=== PATIENT | female | born 1930 | race Caucasian/White ===

== ENCOUNTER 2017-11-16 10:38 | Emergency (ER) | payer MEDICARE, BC ==
[~2017-11-16] VITALS: Ht 154.9 cm; Wt 62.1 kg
[~2017-11-16 10:38] MED LIST: ACETAMINOPHEN-1 EAC1 PO; AUGMENTIN 875-1 EACH PO; CIPROFLOXACIN500 M1 PO; NORVASC5 MG PO; PHENAZOPYRIDIN200 M2 PO
[2017-11-16] MEDS ORDERED: COUMADIN 1MG TAB1 M1 PO (10:55)
[2017-11-16] MEDS ORDERED: NITROFURANTOIN100 MG PO (10:56)
[2017-11-16 11:07] LABS: URINE BILIRUBIN NEGATIVE (Negative); URINE BLOOD 1+ (Negative); URINE CLARITY CLOUDY; URINE GLUCOSE-RANDOM NEGATIVE (Negative); URINE KETONES NEGATIVE (Negative); URINE LEUKOCYTES-REFLEX 2+ (Negative); URINE NITRITE-REFLEX NEGATIVE (Negative); URINE PROTEIN 3+ (Negative); URINE UROBILINOGEN 0.2 E.U./dl (0.2-1.0)
[2017-11-16 11:08] LABS: URINE COLOR GREEN
[2017-11-16 11:11] LABS: SQUAMOUS 0-3 Few /LPF (0-3); URINE WBC-REFLEX >25 Many /HPF (0-5)
[2017-11-16 11:12] LABS: BACTERIA-REFLEX >30 Many /HPF (None Seen); CASTS None Seen /LPF (None Seen); CRYSTALS None Seen /LPF (None Seen); MUCUS None Seen strn/LPF (None Seen); URINE RBC 3-10 Few /HPF (0-2)
[2017-11-16] MEDS ORDERED: AUGMENTIN 875-1 EACH PO (11:13)
[2017-11-16] MEDS ORDERED: PHENAZOPYRIDIN200 M2 PO (11:14)
[2017-11-16 11:26] VITALS: BP 134/68
== END 2017-11-16 11:27 | disposition home or self-care (01) ==
LOC: M.ERS 10:38
PROVIDERS: Family Medicine
DX: N39.0 Urinary tract infection, site not specified (principal); I10 Essential (primary) hypertension; Z87.440 Personal history of urinary (tract) infections; Z90.710 Acquired absence of both cervix and uterus; Z90.89 Acquired absence of other organs; Z86.711 Personal history of pulmonary embolism; Z88.2 Allergy status to sulfonamides

== ENCOUNTER 2018-08-16 16:56 | Inpatient (IN) | payer MEDICARE, BC ==
[~2018-08-16] VITALS: Ht 154.9 cm; Wt 56.7 kg
[~2018-08-16 16:56] MED LIST changes: +COUMADIN 1MG TAB1 M1 PO; +NITROFURANTOIN100 MG PO
[2018-08-16 17:01] VITALS: BP 166/90
[2018-08-16] MEDS ORDERED: COUMADIN 5 MG TA5 M1 PO (17:03)
[2018-08-16 17:44] LABS: ABSOLUTE BASOPHILS 0.1 thou/uL (0.0-0.2); ABSOLUTE EOSINOPHILS 0.2 thou/uL (0.0-0.7); ABSOLUTE LYMPHOCYTES 2.1 thou/uL (0.8-5.3); ABSOLUTE MONOCYTES 0.7 thou/uL (0.0-1.2); ABSOLUTE NEUTROPHILS 3.9 thou/uL (1.6-8.1); BASOPHILS 0.8 %; EOSINOPHILS 2.9 %; HEMATOCRIT 37.5 % (37.0-47.0); HEMOGLOBIN 12.6 gm/dL (12.0-15.0); LYMPHOCYTES 30.6 %; MCH 30.9 pg (26.0-34.0); MCHC 33.5 g/dL (28.0-37.0); MCV 92.3 fL (80.0-100.0); MONOCYTES 9.6 %; MPV 8.4 fl. (7.2-11.1); NUCLEATED RBCS 0 /100WBC; PLATELET COUNT* 213 thou/uL (150-400); POLYS 56.1 %; RBC 4.07 mil/uL (4.20-5.00); RDW-CV 13.7 % (10.5-14.5); WBC 6.9 thou/uL (4.0-11.0)
[2018-08-16 17:54] LABS: PROTIME 75.2 Seconds (9.20-11.50)
[2018-08-16 17:58] LABS: INR 7.5
[2018-08-16 18:13] VITALS: BP 133/90
[2018-08-16 18:50] VITALS: BP 133/90
--- NOTE | 2018-08-16 18:50 | NUR ---
REPORT TO JASWINDER ON . PT AMBULATED TO ROOM WITH STEADY GAIT ACCOMPANIED BY RN AND DTR
[2018-08-16 20:24] VITALS: BP 182/109
[2018-08-17 04:00] VITALS: BP 140/76
--- NOTE | 2018-08-17 05:02 | NUR ---
PT ADMITTED TO ROOM. PT AND DAUGHTER ORIENTED TO ROOM, CALL LIGHT SHOWN, FALL AGREEMENT WENT OVER, DAUGHTER STATED UNDERSTANDING, PT ORIENTED TO SELF ONLY. DAUGHTER STAYED IN ROOM ALL NIGHT. ASSESSMENT DOCUMENTED. MEDS GIVEN PER E-DEC. IV PATENT. PT SLEPT MOST OF SHIFT. WILL CONTINUE WITH PLAN OF CARE.
[2018-08-17 08:30] VITALS: BP 134/75
[2018-08-17 13:06] LABS: CALCIUM 8.6 mg/dL (8.5-10.1); CREATININE 1.1 mg/dL (0.6-1.3)
--- NOTE | 2018-08-17 15:51 | NUR ---
SW met with pt and pt dtr in room to complete initial assessment, introduce self, and SW role. Pt alert, oriented, pleasant. Pt lives at home at [facility] where she is mostly independent with ADLs and mobility; [facility] does assist with medication management. Pt dtr Beverley provided most of the information for assessment; pt is somewhat forgetful. Beverley explained that the [facility] would provide her meds at dinner and pt would put the meds in her pocket and then forget to take them. Pt dtrs Beverley and Dniora are DPOAs. Pt and pt dtr do not anticipate any dc needs at this time. SW to continue to follow to assist with safe dc planning.
[2018-08-17 16:00] VITALS: BP 141/95
--- NOTE | 2018-08-17 16:21 | NUR ---
PATIENT UP AROUND ROOM, STEADY GAIT NOTED. FLU VACCINE GIVEN PER ORDERS. IV REMAINS SL. PATIENT DAUGHTER HERE MOST OF THE SHIFT. INR REMAINS ELEVATED, REDRAW IN AM.
[2018-08-17 20:54] LABS: URINE BILIRUBIN NEGATIVE (Negative); URINE BLOOD TRACE (Negative); URINE CLARITY CLOUDY; URINE COLOR YELLOW; URINE GLUCOSE-RANDOM NEGATIVE (Negative); URINE KETONES NEGATIVE (Negative); URINE LEUKOCYTES 2+ (Negative); URINE NITRITE POSITIVE (Negative); URINE PROTEIN NEGATIVE (Negative); URINE SPECIFIC GRAVITY 1.025 (1.005-1.030); URINE UROBILINOGEN 0.2 E.U./dl (0.2-1.0)
[2018-08-17 21:02] LABS: BACTERIA >30 Many /HPF (None Seen); SQUAMOUS >10 Many /LPF (0-3); URINE WBC 6-15 Few /HPF (0-5)
[2018-08-17 21:03] LABS: URINE RBC 0-2 Rare /HPF (0-2)
[2018-08-17 21:04] LABS: CRYSTALS None Seen /LPF (None Seen); HYALINE CASTS 0-3 Few /LPF (None Seen); MUCUS None Seen strn/LPF (None Seen)
[2018-08-18 00:28] VITALS: BP 160/97
[2018-08-18 04:01] LABS: ABSOLUTE BASOPHILS 0.1 thou/uL (0.0-0.2); ABSOLUTE EOSINOPHILS 0.2 thou/uL (0.0-0.7); ABSOLUTE LYMPHOCYTES 1.6 thou/uL (0.8-5.3); ABSOLUTE MONOCYTES 0.6 thou/uL (0.0-1.2); ABSOLUTE NEUTROPHILS 4.1 thou/uL (1.6-8.1); BASOPHILS 0.9 %; EOSINOPHILS 2.5 %; HEMATOCRIT 36.1 % (37.0-47.0); HEMOGLOBIN 12.2 gm/dL (12.0-15.0); MCH 31.4 pg (26.0-34.0); MCHC 33.9 g/dL (28.0-37.0); MCV 92.8 fL (80.0-100.0); MPV 8.8 fl. (7.2-11.1); NUCLEATED RBCS 0 /100WBC; PLATELET COUNT* 195 thou/uL (150-400); POLYS 63.6 %; RBC 3.89 mil/uL (4.20-5.00); RDW-CV 13.2 % (10.5-14.5); WBC 6.5 thou/uL (4.0-11.0)
[2018-08-18 04:12] LABS: CALCIUM 8.1 mg/dL (8.5-10.1); CREATININE 0.9 mg/dL (0.6-1.3); POTASSIUM 3.5 mmol/L (3.5-5.1)
[2018-08-18 04:13] LABS: PROTIME 19.5 Seconds (9.20-11.50)
[2018-08-18 04:16] LABS: INR 1.9
--- NOTE | 2018-08-18 05:23 | NUR ---
PT SLEPT MOST OF SHIFT. ASSESSMENT DOCUMENTED. MEDS GIVEN PER E-MAR. INCREASED CONFUSION NOTED THIS SHIFT. PT PULLED OUT IV THIS SHIFT, NEW IV STARTED. UA OBTAINED, NOTIFIED OF RESULTS, ABX STARTED. DAUGHTER STAYED IN ROOM THROUGH NIGHT. WILL CONTINUE WITH PLAN OF CARE.
[2018-08-18 08:05] VITALS: BP 154/91
[2018-08-18 10:02] VITALS: BP 154/91
[2018-08-18] MEDS ORDERED: CEFUROXIME500 MG PO (10:14)
--- NOTE | 2018-08-18 10:40 | NUR ---
PATIENT DISCHARGED TO [facility]ISTED [facility]IVING. DISCHARGE PAPERS REVIEWED AND SIGNED. PRESCRIPTIONS AND INFORMATION SHEETS GIVEN. IV REMOVED. PATIENT AND FAMILY DENIES ANY FURTHER NEEDS. PATIENT TAKEN BY WHEELCHAIR TO EXIT. LEFT WITH DAUGHTER.
--- NOTE | 2018-08-18 11:12 | NUR ---
Pt discharged back to [facility], [place] [phone]. CM spoke with dtr at bedside regarding HH orders for PT/INR. Dtr informed that the nurse at [facility], Julissa, has been doing Pt's lab draws and plans on Julissa continuing. CM inquired into if Julissa worked for a HH agency, dtr believes that Julissa works for the [facility]. CM attempted to contact [facility], left message. CM provided dtr with the HH orders and face to face, in case Julissa does actually work for a HH agency. CM instructed dtr on how to proceed if that is determined. Dtr to provide dc transportation.
== END 2018-08-18 10:40 | disposition home health service (06) | DRG 918 ==
LOC: M.ERS 16:56 → M.3W 18:03 → M.TBA-ER 18:03 → M.3W 18:51
PROVIDERS: Internal Medicine; Nurse Practitioner; ADMIT Internal Medicine
DX: T45.511A Poisoning by anticoagulants, accidental (unintentional), initial encounter (principal); N39.0 Urinary tract infection, site not specified; D68.9 Coagulation defect, unspecified; F03.90 Unspecified dementia, unspecified severity, without behavioral disturbance, psychotic disturbance, mood disturbance, and anxiety; I10 Essential (primary) hypertension; Z86.711 Personal history of pulmonary embolism; Z90.710 Acquired absence of both cervix and uterus; Z88.2 Allergy status to sulfonamides; Z23 Encounter for immunization; Z79.899 Other long term (current) drug therapy